=== PATIENT | female | born 1960 | race Caucasian/White ===

== ENCOUNTER → 2023-02-03 | Day surgery (SDC) | payer OTHER ==
[2023-02-01 09:35] LABS: BASOPHILS % 0.5 % (0.0-1.0); EOSINOPHILS # (AUTO) 0.1 (0.0-0.4); EOSINOPHILS % 1.6 % (0.0-6.0); HEMATOCRIT 38.8 % (34.2-44.1); HEMOGLOBIN 13.5 g/dL (12.0-16.0); LYMPHOCYTES % 35.1 % (18.0-39.1); MEAN CORPUSCULAR HEMOGLOBIN 33.5 pg (28-32); MEAN CORPUSCULAR HGB CONC 34.8 g/dL (31-35); MEAN CORPUSCULAR VOLUME 96.3 fL (81-99); MONOCYTES # (AUTO) 0.6 (0.2-0.8); NEUTROPHILS # (AUTO) 4.8 (2.1-6.9); NEUTROPHILS % 55.4 % (38.7-80.0); PLATELET COUNT 250 x10e3/uL (140-360); RED BLOOD COUNT 4.03 x10e6/uL (3.6-5.1); RED CELL DISTRIBUTION WIDTH 14.6 % (11.7-14.4)
[2023-02-01 09:56] LABS: ANION GAP 12.8 mmol/L (8-16); CALCIUM 9.7 mg/dL (8.4-10.2); CREATININE, SERUM 0.64 mg/dL (0.57-1.11); POTASSIUM 4.8 mmol/L (3.5-5.1)
[~2023-02-03] MED LIST: ACETAMINOPHEN 1000 MG/100 ML 100 ML IV ONE; BUPIVACAINE HCL 0.5% 10ML MPF VIAL INJ ONE; BUPIVACAINE HCL 0.5% INJ 30 ML VIAL INJ ONE; CALCIUM; CEFAZOLIN SODIUM 2 GM ONE; CELEBREX200 MG PO; DEXAMETHASONE SOD PHOS INJ 4 MG/ML SDV ONE; FENTANYL CITRATE/PF 100MCG/2 ML INJ ONE; KETOROLAC TROMETHAMINE 30 MG/ML VIAL ONE; LACTATED RINGER'S 1,000 ML ONE; LIDOCAINE HCL 2% LOCAL INJ 5 ML SDV VIAL INJ ONE; NEOSTIGMINE 1 MG/ML 10ML VIAL ONE; ONDANSETRON HCL INJ 2MG/ML 2ML 2 MG/ML VIAL ONE; OXYBUTYNIN CHLOR5 MG PO; POVIDONE IODINE 0.05% 0.05 % ML PO ONE; PROPOFOL IV EMULSION 10 MG/ML 20 ML VIAL ONE; SEVOFLURANE INHAL SOLN 250 ML PEN BTL ONE; VITAMIN D31 ML
[2023-02-03 10:18] VITALS: BP 125/74; PULSE 67; RESP 18; O2SAT 96
== END | disposition home or self-care (01) ==
LOC: OR 05:39
PROVIDERS: ATTEND Podiatrist Foot Surgery
DX: M20.11 Hallux valgus (acquired), right foot (principal); M20.41 Other hammer toe(s) (acquired), right foot; M21.271 Flexion deformity, right ankle and toes; F17.210 Nicotine dependence, cigarettes, uncomplicated; Z88.6 Allergy status to analgesic agent; Z88.8 Allergy status to other drugs, medicaments and biological substances; Z01.810 Encounter for preprocedural cardiovascular examination; Z01.812 Encounter for preprocedural laboratory examination; Z01.818 Encounter for other preprocedural examination; Z79.899 Other long term (current) drug therapy
CPT/HCPCS: 28285 ×2; 28296; 28308; 36415; 71046; 80048; 85025; 93005; C1713 ×7; J0131; J1100; J1885; J2001; J2405; J2704; J2710; J3010; J7121; 76000

== ENCOUNTER 2024-10-21 08:46 | Emergency (ER) | payer OTHER ==
[~2024-10-21] VITALS: Ht 172.7 cm; Wt 93.0 kg
[~2024-10-21 08:46] MED LIST changes: -ACETAMINOPHEN 1000 MG/100 ML 100 ML IV ONE; -BUPIVACAINE HCL 0.5% 10ML MPF VIAL INJ ONE; -BUPIVACAINE HCL 0.5% INJ 30 ML VIAL INJ ONE; -CEFAZOLIN SODIUM 2 GM ONE; -DEXAMETHASONE SOD PHOS INJ 4 MG/ML SDV ONE; -FENTANYL CITRATE/PF 100MCG/2 ML INJ ONE; -KETOROLAC TROMETHAMINE 30 MG/ML VIAL ONE; -LACTATED RINGER'S 1,000 ML ONE; -LIDOCAINE HCL 2% LOCAL INJ 5 ML SDV VIAL INJ ONE; -NEOSTIGMINE 1 MG/ML 10ML VIAL ONE; -ONDANSETRON HCL INJ 2MG/ML 2ML 2 MG/ML VIAL ONE; -POVIDONE IODINE 0.05% 0.05 % ML PO ONE; -PROPOFOL IV EMULSION 10 MG/ML 20 ML VIAL ONE; -SEVOFLURANE INHAL SOLN 250 ML PEN BTL ONE
[2024-10-21 08:53] VITALS: PULSE 104; RESP 18; TEMP 98.3; O2SAT 98
[2024-10-21 09:32] LABS: BASOPHILS % 0.1 % (0.0-1.0); EOSINOPHILS # (AUTO) 0.5 (0.0-0.4); EOSINOPHILS % 6.5 % (0.0-6.0); HEMATOCRIT 43.3 % (34.2-44.1); HEMOGLOBIN 14.6 g/dL (12.0-16.0); LYMPHOCYTES # (AUTO) 2.3 (1.0-3.2); LYMPHOCYTES % 29.6 % (18.0-39.1); MEAN CORPUSCULAR HEMOGLOBIN 33.3 pg (28-32); MEAN CORPUSCULAR HGB CONC 33.7 g/dL (31-35); MEAN CORPUSCULAR VOLUME 98.9 fL (81-99); MONOCYTES # (AUTO) 0.7 (0.2-0.8); MONOCYTES % 9.6 % (4.4-11.3); NEUTROPHILS # (AUTO) 4.1 (2.1-6.9); NEUTROPHILS % 53.8 % (38.7-80.0); PLATELET COUNT 292 x10e3/uL (140-360); RED BLOOD COUNT 4.38 x10e6/uL (3.6-5.1); RED CELL DISTRIBUTION WIDTH 13.3 % (11.7-14.4); WHITE BLOOD COUNT 7.68 x10e3/uL (4.8-10.8)
[2024-10-21] MEDS: SODIUM CHLORIDE 0.9% 1000ML 1,000 ML IV STA (09:43)
[2024-10-21] MEDS: ONDANSETRON HCL INJ 2MG/ML 2ML 2 MG/ML VIAL IV STA (09:43)
[2024-10-21 10:04] LABS: INR 0.96; PROTHROMBIN TIME 13.4 seconds (11.9-14.5)
[2024-10-21 10:05] LABS: ALBUMIN 4.1 g/dL (3.5-5.0); ALBUMIN/GLOBULIN RATIO 1.1 (0.8-2.0); ANION GAP 17.3 mmol/L (8-16); BILIRUBIN,TOTAL 0.8 mg/dL (0.2-1.2); CALCIUM 9.7 mg/dL (8.4-10.2); CREATININE, SERUM 0.8 mg/dL (0.57-1.11); MAGNESIUM 1.8 MG/DL (1.3-2.1); PARTIAL THROMBOPLASTIN TIME 24.1 seconds (23.8-35.5); POTASSIUM 3.3 mmol/L (3.5-5.1); TOTAL PROTEIN 7.7 g/dL (6.5-8.1)
[2024-10-21 10:10] LABS: TROPONIN I 0.042 ng/mL (0-0.300)
[2024-10-21] MEDS ORDERED: IOPAMIDOL 370 MG/ML 100 ML INFUS..BTL INJ ONE (10:14)
[2024-10-21 11:13] LABS: BILIRUBIN,URINE NEGATIVE (NEGATIVE); CLARITY,URINE CLEAR (CLEAR); COLOR,URINE YELLOW (YELLOW); GLUCOSE, URINE NEGATIVE (NEGATIVE); KETONES,URINE NEGATIVE (NEGATIVE); LEUKOCYTE ESTERASE ,URINE NEGATIVE (NEGATIVE); NITRITE,URINE NEGATIVE (NEGATIVE); PH,URINE 7 (5 - 7); PROTEIN,URINE DIPSTICK >=300 (NEGATIVE); URINE UROBILINOGEN 0.2 mg/dL (0.2 - 1)
[2024-10-21 11:48] LABS: BACTERIA,URINE MODERATE /HPF; EPITHELIAL CELLS,URINE FEW /LPF
[2024-10-21 11:49] LABS: RBC,URINE 0-5 /HPF (0-5)
[2024-10-21] MEDS ORDERED: DICYCLOMINE HCL20 MG PO (12:22)
[2024-10-21] MEDS ORDERED: ONDANSETRON ODT4 MG PO (12:22)
[2024-10-21] MEDS ORDERED: CEFDINIR300 MG PO (12:22)
== END 2024-10-21 12:45 | disposition home or self-care (01) ==
LOC: ER 08:58
DX: R10.13 Epigastric pain (principal); N39.0 Urinary tract infection, site not specified; R11.2 Nausea with vomiting, unspecified; R19.7 Diarrhea, unspecified
CPT/HCPCS: 36415; 71045; 74177; 80053; 81001; 82550; 83690; 83735; 84484; 85025; 85610; 85730; 87086; 93005; 99284; J2405; J2470; J7030; Q9967; 87186